=== PATIENT | female | born 1975 | race Caucasian/White ===

== ENCOUNTER 2016-11-01 14:47 | Emergency (ER) | payer OTHER ==
[~2016-11-01] VITALS: Ht 162.6 cm; Wt 122.0 kg
[2016-11-01 14:48] VITALS: BP 168/98; PULSE 89; RESP 14; TEMP 98.1; O2SAT 99
--- NOTE | 2016-11-01 14:54 | PD ---
Physical Exam Time Seen by Provider: 14:53 Narrative 41yo F c/o R sided low back pain and sciatic. Hx of chronic low back pain and sciatica. Denies new or recent injury. Denies IV drug use. Asael fever. VS reviewed. Patient seen in triage. Awaiting bed placement. Data Data Last Documented VS Vital Signs Date Time Temp Pulse Resp B/P Pulse Ox O2 Delivery O2 Flow Rate FiO2 11/01/16 14:48 98.1 89 14 168/98 99 MDM Supervised Visit with FRANCIS: Radha Dos Santos November 01, 2016 14:54
[2016-11-01] MEDS ORDERED: CYCL5TAB PO (16:14)
[2016-11-01] MEDS ORDERED: IBUP800T23 PO (16:14)
--- NOTE | 2016-11-01 16:14 | PD ---
HPI . right leg sciatica and low back pain x 4 days Chief Complaint: Back/ Neck Pain or Injury Time Seen by Provider: 16:11 Travel History International Travel<30 days: No Contact w/Intl Traveler<30days: No Traveled to known affect area: No History of Present Illness HPI 41-year-old female with history of chronic low back pain and sciatica here with complaints of exacerbation of her lower back pain and sciatica for the past 4 days. Patient tells me this feels like one of her normal attacks, however it has lasted for a little bit longer duration. This is why she decided to come to the emergency department. She says usually her attacks will only last for one day, but this has been going on for the past 4 days. The pain is severe and located mainly in the lower back and radiating down to right leg. It is rated as a 8/10. She denies any bowel or bladder dysfunction. She has no saddle anesthesia. She has not yet established with a primary care provider locally. PFSH Past Medical History ?: Not Social History Tobacco Use: No Allergies-Medications (Allergen,Severity, Reaction): Coded Allergies: No Known Allergies (Unverified , 11/01/16) Reported Meds & Prescriptions Reported Meds & Active Scripts Active Ibuprofen 800 Mg Tab 800 Mg PO TID Flexeril (Cyclobenzaprine HCl) 5 Mg Tab 5 Mg PO TID Review of Systems General / Constitutional: No: Fever Eyes: No: Visual changes HENT: No: Headaches Cardiovascular: No: Chest Pain or Discomfort Respiratory: No: Shortness of Breath Gastrointestinal: No: Abdominal Pain Genitourinary: No: Dysuria Musculoskeletal: Positive: Pain (back and right leg) Skin: No Rash Neurologic: No: Weakness Psychiatric: No: Depression Endocrine: No: Polydipsia Hematologic/Lymphatic: No: Easy Bruising Physical Exam Narrative GENERAL: AAO x 3, no acute distress, Well-nourished, well-developed patient. SKIN: Warm and dry. No visible rashes or bruising. HEAD: Normocephalic and atraumatic. EYES: No scleral icterus. No injection or drainage. ENT: No nasal drainage noted. Mucous membranes pink. Airway patent. NECK: Supple, trachea midline. No JVD. CARDIOVASCULAR: Regular rate and rhythm without murmurs, gallops, or rubs. RESPIRATORY: Breath sounds equal bilaterally. No accessory muscle use. No rhonchi or rales. GASTROINTESTINAL: Abdomen soft, non-tender, nondistended. EXTREMITIES: No cyanosis or edema.+ SLR on right side. tenderness to right gluteus, BACK: Nontender without obvious deformity. No CVA tenderness. PSYCH: AAO x 3, normal affect. Data Data Last Documented VS Vital Signs Date Time Temp Pulse Resp B/P Pulse Ox O2 Delivery O2 Flow Rate FiO2 11/01/16 14:48 98.1 89 14 168/98 99 MDM Medical Decision Making Medical Screen Exam Complete: Yes Emergency Medical Condition: Yes Medical Record Reviewed: Yes Differential Diagnosis lumbago, sciatica, less likely fracture Narrative Course 41-year-old female with history of chronic low back pain and sciatica here with complaints of exacerbation of her lower back pain and sciatica for the past 4 days. Patient tells me this feels like one of her normal attacks, however it has lasted for a little bit longer duration. This is why she decided to come to the emergency department. She says usually her attacks will only last for one day, but this has been going on for the past 4 days. The pain is severe and located mainly in the lower back and radiating down to right leg. It is rated as a 8/10. She denies any bowel or bladder dysfunction. She has no saddle anesthesia. She has not yet established with a primary care provider locally. Patient seen and examined. She appears to have an acute flareup of low back pain with sciatica. Unfortunately she drove herself here to the emergency department so we will hold off on administering any medications here. I will discharge her home with a course of anti-inflammatories and muscle relaxers. I discussed the side effects with her. I've advised her to establish with primary care provider for further workup and treatment. Patient verbalized understanding of instructions, questions were answered, and thanked me for their care. I advised them if their condition worsens, please return to the nearest emergency room for further care. Diagnosis Primary Impression: Sciatica Qualified Code: M54.31 - Sciatica of right side Additional Impression: Lumbago Qualified Code: M54.41 - Acute right-sided low back pain with right-sided sciatica Patient Instructions: General Instructions, Sciatica (ED) Additional Instructions: Please return to emergency department if your symptoms return or worsen. Follow up with your primary care provider. Take medications as prescribed. Med/Other Pt SpecificInfo: Prescription(s) given Scripts Ibuprofen 800 Mg [id number] Mg PO TID #21 TAB Prov:Marii Anaya DO 11/01/16 Cyclobenzaprine (Flexeril)5 Mg Tab5 Mg PO TID #21 TAB Prov:Marii Anaya DO 11/01/16 Disposition: 01 DISCHARGE HOME Condition: Stable Sandi Sunshine November 01, 2016 16:13
== END 2016-11-01 16:42 | disposition home or self-care (01) ==
LOC: NEPK 14:47
DX: M54.31 Sciatica, right side (principal); M54.41 Lumbago with sciatica, right side
CPT/HCPCS: 99283